=== PATIENT | male | born 1985 | race Two or more races ===

== ENCOUNTER 2022-11-16 08:08 | Emergency (ER) | payer MEDICAID ==
[~2022-11-16] VITALS: Ht 162.6 cm; Wt 107.8 kg
[~2022-11-16 08:08] MED LIST: CLIN300C70 PO; GAUZ1PAD XX; GAUZMIS54 XX; LEVO500T31 PO; TRAM-297 PO; TRAM50TA2 PO
[2022-11-16 08:53] VITALS: BP 138/101
[2022-11-16] MEDS ORDERED: IBUP-1456 PO (09:14)
[2022-11-16] MEDS ORDERED: BACDST PO (09:14)
== END 2022-11-16 09:29 | disposition home or self-care (01) ==
LOC: ER 08:08
DX: S40.861A Insect bite (nonvenomous) of right upper arm, initial encounter (principal); J45.909 Unspecified asthma, uncomplicated; Z88.2 Allergy status to sulfonamides; W57.XXXA Bitten or stung by nonvenomous insect and other nonvenomous arthropods, initial encounter; Y93.89 Activity, other specified; Y92.89 Other specified places as the place of occurrence of the external cause; Y99.8 Other external cause status